=== PATIENT | female | born 1995 | race African-American/Black ===

== ENCOUNTER 2017-06-25 15:52 | Emergency (ER) | payer OTHER ==
[~2017-06-25] VITALS: Ht 165.1 cm; Wt 90.7 kg
[2017-06-25 16:11] LABS: URINE BILIRUBIN NEGATIVE (Negative); URINE BLOOD TRACE (Negative); URINE CLARITY CLEAR; URINE COLOR YELLOW; URINE GLUCOSE-RANDOM* NEGATIVE (Negative); URINE KETONES 1+ (Negative); URINE LEUKOCYTES 2+ (Negative); URINE NITRITE NEGATIVE (Negative); URINE PROTEIN (DIPSTICK) NEGATIVE (Negative); URINE SPECIFIC GRAVITY 1.025 (1.005-1.035); URINE UROBILINOGEN 0.2 E.U./dl (0.2-1.0)
[2017-06-25] MEDS ORDERED: VENTOLIN HFA 1818 GM INH (16:23)
[2017-06-25] MEDS ORDERED: PRENATAL PO (16:24)
[2017-06-25 16:37] LABS: SQUAMOUS >10 Many /LPF (0-3)
[2017-06-25 16:40] LABS: BACTERIA >30 Many /HPF (None Seen); CASTS None Seen /LPF (None Seen); CRYSTALS None Seen /LPF (None Seen); URINE RBC 3-10 Few /HPF (0-2)
[2017-06-25 16:43] LABS: ABSOLUTE NEUTROPHILS 5.8 thou/uL (1.4-8.2); BASOPHILS 0.7 % (0.0-2.0); EOSINOPHILS 1.8 % (0.0-3.0); HEMATOCRIT 34.7 % (37.0-47.0); LYMPHOCYTES 21.3 % (24.0-44.0); MCH 30.5 pg (26.0-34.0); MCHC 34.5 g/dL (28.0-37.0); MCV 88.2 fL (80.0-100.0); MONOCYTES 8.2 % (1.0-8.0); PLATELET COUNT 303 thou/uL (150-400); RBC 3.94 mil/uL (4.20-5.00); WBC 8.5 thou/uL (4.0-11.0)
[2017-06-25 17:11] LABS: CALCIUM 8.8 mg/dL (8.5-10.1); CREATININE 0.7 mg/dL (0.6-1.0); POTASSIUM 3.4 mmol/L (3.5-5.1)
[2017-06-25 17:18] LABS: ALBUMIN 3.4 g/dL (3.4-5.0); TOTAL BILIRUBIN 0.2 mg/dL (<0.1-1.0); TOTAL PROTEIN 6.8 g/dL (6.4-8.2)
[2017-06-25] MEDS ORDERED: KEFLEX500 M1 PO (17:40)
[2017-06-25] MEDS ORDERED: PREDNISOLO10 MG/5 ML PO (17:40)
[2017-06-25] MEDS ORDERED: DICLEGIS DR 101 EACH PO (17:40)
== END 2017-06-25 18:17 | disposition home or self-care (01) ==
LOC: ER 15:52
PROVIDERS: Physician Assistant
DX: O23.42 Unspecified infection of urinary tract in pregnancy, second trimester (principal); O26.892 Other specified pregnancy related conditions, second trimester; E86.0 Dehydration; T78.40XA Allergy, unspecified, initial encounter; Z91.013 Allergy to seafood; Z3A.16 16 weeks gestation of pregnancy; X58.XXXA Exposure to other specified factors, initial encounter